=== PATIENT | female | born 1950 | race Caucasian/White ===

== ENCOUNTER 2022-08-22 11:36 | Emergency (ER) | payer OTHER, BC ==
[~2022-08-22] VITALS: Ht 162.6 cm; Wt 57.6 kg
[2022-08-22] MEDS ORDERED: ATORVASTATIN CA20 MG PO (12:44)
[2022-08-22] MEDS ORDERED: CLEOCIN HCL300 MG PO (13:28)
== END 2022-08-22 13:41 | disposition home or self-care (01) ==
LOC: ER 11:36
DX: L03.115 Cellulitis of right lower limb (principal)